=== PATIENT | female | born 1970 | race Caucasian/White ===

== ENCOUNTER 2016-11-22 05:37 | Observation (INO) | payer OTHER, SELFPAY ==
[2016-11-15 10:41] LABS: HEMOGLOBIN 14.9 g/dL (12.0-16.0)
--- NOTE | ~2016-11-22 | OP ---
Record Of Operation [place] [id number] [facility] [place]. [address] NAME: CIRILO CHAO : 66 STATUS : ADM Eris PAT#: [id number] AGE: 46 ADM/REG DATE : 11/22/16 MR#: [id number] REPORT SERV DATE: 11/23/16 DICTATED BY: RADHA BUTLER II DATE: 11/22/16 REPORT STATUS : Draft TRANSCRIBED BY: MODMitzi DATE: 11/22/16 DATE OF PROCEDURE: 11/22/2016 PREOPERATIVE DIAGNOSES: 1. Cervical spondylosis with multilevel stenosis including herniated nucleus pulposus at C4-5, C6-7. 2. Discogenic neck pain. 3. Cervicogenic headaches. POSTOPERATIVE DIAGNOSES: 1. Cervical spondylosis with multilevel stenosis including herniated nucleus pulposus at C4-5, C6-7. 2. Discogenic neck pain. 3. Cervicogenic headaches. PROCEDURE: 1. C4-5, C5-6, C6-7 anterior interbody arthrodesis. 2. Application of prosthetic device at C4-5, C5-6, C6-7. 3. Anterior instrumentation C4-7 (4 segments). 4. Use of allograft substitute and bone marrow aspirate. 5. Use of the microscope. SURGEON: Radha Butler M.D. FLUIDS: 1600 mL LR. ESTIMATED BLOOD LOSS: 40 mL. DRAINS: One drain. COMPLICATIONS: None. ANTIBIOTIC: Preoperatively. IMPLANTS: Globus. PREOPERATIVE HISTORY: This is a very friendly 46-year-old female, suffering with predominantly neck pain with some radiation into the upper extremities. Her primary complaint is neck pain with radiation into the suboccipital region as well. We discussed the risks and benefits of the surgery. She was aware that surgery had risks. Risks discussed include, but are not limited to difficulty swallowing, vocal cord paralysis, spinal cord injury, and a small chance of stroke and . DESCRIPTION OF PROCEDURE: After informed consent was obtained, the patient was brought to the operating room at her request and general anesthesia achieved. She was placed in the supine position. The neck and iliac crest were prepped and draped in a sterile fashion. A Record Of Operation [facility] [address] [facility] [place]. [address] NAME: CIRILO CHAO : 66 STATUS : ADM Eris PAT#: [id number] AGE: 46 ADM/REG DATE : 11/22/16 MR#: [id number] REPORT SERV DATE: 11/23/16 DICTATED BY: RADHA BUTLER II DATE: 11/22/16 REPORT STATUS : Draft TRANSCRIBED BY: ELDON DATE: 11/22/16 5 mL of bone marrow were aspirated from the iliac crest followed by a right-sided longitudinal incision. The interval was explored. The deep cervical fascia incised. The subperiosteal exposure was completed from C4-C7. The v belt curer retractors were placed. Underneath the longus colli muscles, the ET tube cuff was deflated and reinflated. The Mobile pins were now placed into C4-C7, and gentle distraction was performed. Next, the disk material was now removed with the knife at C4-5. Again, please note the microscope was in place. The pituitary rongeurs, Kerrison rongeurs, and the curettes were now used for the diskectomy. The endplates were now prepared with the curettes and the high speed bur. The posterior vertebral body osteophytes were now removed with the high-speed bur and the Kerrison rongeurs. The posterior longitudinal ligament was now removed followed by foraminotomies. The prosthetic device was then well placed at C4-5. This contained allograft substitute and bone marrow aspirate. Next, the C5-6 level was addressed in a similar manner. The diskectomy was completed and the endplates prepared. The diskectomy was then further performed with the high-speed khari and the foraminotomies were now completed with the Kerrison rongeurs and curettes. The posterior longitudinal ligament was now removed and the anterior canal and foramen well decompressed. The prosthetic device was then well placed at C5-6. This contained an allograft substitute and bone marrow aspirate. Next, the C6-7 level was addressed in a similar manner. The endplates were once again prepared following diskectomy. The posterior longitudinal ligament was now removed, and the foraminotomy was completed. The spinal cord was also well decompressed, and the prosthetic device well placed at C6-7. Following removal of the Mobile pins, the anterior fixation device was chosen and placed. Please note, this was a separate plate and screw construct. Two screws were then placed in the C4, C5, C6, and C7. Multiplanar imaging confirmed acceptable placement of the implants. The standard closure was performed over a drain, and the patient then extubated and transferred to PACU in stable condition. SHIVANI/ELDON Radha Butler II, M.D. / [id number] CC: Kolby Rosales II, DO
[~2016-11-22 05:37] MED LIST: CAT1 PO; EEMT HS PO; FERROUS SULF324 MG PO; FERROUS SULF325 M1 PO; FOLIC PO; LIOR10 PO; MTX2.5 PO; NEXIUM20 M1 PO; NORCO1 TA1 PO; P10 PO; PCET PO; PRIN10 PO; REG PO; TRAZ50 PO; X5 PO; ZOL100 PO; ZOLOFT25 MG PO
[2016-11-23] MEDS ORDERED: PERCOCET 10/3251 TAB PO (10:28)
[2016-11-23] MEDS ORDERED: ZOFRAN4 PO/SL (10:28)
[2016-11-23] MEDS ORDERED: V5 PO (10:28)
== END 2016-11-23 15:14 | disposition home or self-care (01) ==
LOC: SDC 05:37 → 3SO 12:41
PROVIDERS: Orthopaedic Surgery
PROC: 0RG20Z0 (ICD-10-PCS; principal; 2016-11-22 09:45)
DX: M47.812 Spondylosis without myelopathy or radiculopathy, cervical region (principal); M50.221 Other cervical disc displacement at C4-C5 level; M50.223 Other cervical disc displacement at C6-C7 level; M48.02 Spinal stenosis, cervical region; I10 Essential (primary) hypertension; D64.9 Anemia, unspecified; K21.9 Gastro-esophageal reflux disease without esophagitis; M06.9 Rheumatoid arthritis, unspecified; Z90.49 Acquired absence of other specified parts of digestive tract; Z88.2 Allergy status to sulfonamides; Z90.710 Acquired absence of both cervix and uterus; Z98.890 Other specified postprocedural states; Z79.52 Long term (current) use of systemic steroids; Z79.899 Other long term (current) drug therapy
CPT/HCPCS: 82962; 85014; 85018; 87641; 88304; 88311; 96374; 96375; 96376; A9270-GY; C1713; G0378; J0690; J1170; J2250; J2405; J2710; J3010